=== PATIENT | female | born 1990 ===

== ENCOUNTER 2022-12-02 19:26 | Emergency (ER) | payer SELFPAY ==
[2022-12-02] MEDS ORDERED: Sodium Chloride 0.9% 1,000 ML IV ONE (19:47)
[2022-12-02 20:28] LABS: HEMOGLOBIN A1C 5.8 %
[2022-12-02 20:52] LABS: BLOOD UREA NITROGEN,BUN 10 mg/dL (7.0-18.0); CARBON DIOXIDE,CO2 27.1 mmol/L (21.0-32.0); CHLORIDE,CL 105 mmol/L (98-107); GLUCOSE RANDOM 148 mg/dL (74-106); POTASSIUM,K 3.3 mmol/L (3.5-5.1); SODIUM,NA 142 mmol/L (136-145)
[2022-12-02 21:05] LABS: CORONAVIRUS COVID-19 NAA NEGATIVE (NEGATIVE); INFLUENZA A NAA NEGATIVE (NEGATIVE); INFLUENZA B NAA NEGATIVE (NEGATIVE)
[2022-12-02 21:16] LABS: ESTIMATED GFR 101 mL/min (>60)
== END 2022-12-02 21:31 | disposition home or self-care (01) ==
LOC: MW.ED 19:26
DX: R55 Syncope and collapse (principal); Z20.822 Contact with and (suspected) exposure to COVID-19
CPT/HCPCS: 0240U; 36415; 71045; 80053; 83036; 83735; 84443; 84484; 84703; 85025; 96360; 99285; J7030; 93005